=== PATIENT | female | born 1935 | race Caucasian/White ===

== ENCOUNTER 2017-07-16 01:53 | Emergency (ER) | payer OTHER ==
[2017-07-16 02:42] VITALS: TEMP 97.9; BMI 29.5
[2017-07-16] MEDS ORDERED: morphine CARPU-JECT 2 MG/1 ML DISP.SYRIN IVPUSH ONE (02:57)
--- NOTE | 2017-07-16 03:26 | PDOC ---
History of Present Illness - General History Source: Patient Exam Limitations: No Limitations - History of Present Illness Initial Comments: 07/16/17 04:33 Patient is an 82 year old female with a significant past medical history of who presents to the ED complaints of abdominal pain that began this morning at 12:30am. As per patient's daughter, patient called daughter at 1am stating that she had been experiencing left upper quadrant pain for 1 hour. She reports Left upper quadrant pain is sharp pain that is constant but waxes and wanes in intensity that is intensifies with deep breathes. Patient reports experiencing similar episode many years ago and was hospitalized for it but does not remember the diagnosis given. Denies nausea, vomiting. Pt denies any chest pain, sob, cough/hemoptysis. Denies fever, chills. Denies diarrhea, constipation, dysuria, hematuria. Denies contact with sick individuals, out of state travel. Denies trauma to affected area. Allergies: None Social history: No smoking. No alcohol. No illicit drugs. Surgical history: None PMD: Dr. Shayne Francis (not on staff) <Lit Mancera - Last Filed: 07/16/17 04:33> <Gama Sandy - Last Filed: 07/16/17 09:09> - General Chief Complaint: Pain, Acute Stated Complaint: LLQ PAIN Time Seen by Provider: 07/16/17 02:22 Past History <Lit Mancera - Last Filed: 07/16/17 04:33> - Suicide/Smoking/Psychosocial Hx Smoking History: Unknown if ever smoked Information on smoking cessation initiated: No Hx Alcohol Use: No Drug/Substance Use Hx: No <Gama Sandy - Last Filed: 07/16/17 09:09> - Past Medical History Allergies/Adverse Reactions: Allergies Allergy/AdvReac Type Severity Reaction Status Date / Time No Known Allergies Allergy Verified 07/16/17 03:03 Home Medications: Ambulatory Orders Docusate Sodium [Colace -] 100 mg PO TID #30 capsule 07/16/17 Psyllium [Metamucil (Sugar-Free) -] 5.85 gm PO BID #30 packet 07/16/17 Review of Systems - Review of Systems Able to Perform ROS?: Yes Comments:: 07/16/17 04:34 CONSTITUTIONAL: No reported: Fever, Chills, Diaphoresis, Generalized Weakness, Malaise, Loss of Appetite HEENT: No reported: Rhinorrhea, Nasal Congestion, Throat Pain, Throat Swelling, Difficulty Swallowing, Mouth Swelling, Ear Pain, Eye Pain, Visual Changes CARDIOVASCULAR: No reported: Chest Pain, Syncope, Palpitations, Irregular Heart Rate, Lightheadedness, Peripheral Edema RESPIRATORY: No reported: Cough, Shortness of Breath, SOB with Exertion, Orthopnea, Wheezing , Stridor, Hemoptysis GASTROINTESTINAL: No reported: Abdominal pain, Abdominal Distension, Nausea, Vomiting, Diarrhea, Constipation, Melena, Hematochezia GENITOURINARY: No reported: Dysuria, Frequency, Urgency, Hesitancy, Flank Pain, Genital Pain MUSCULOSKELETAL: +Left upper quadrant pain. No reported: Myalgia, Arthralgia, Joint Swelling, Back pain, Neck Pain SKIN: No reported: Rash, Itching, Pallor HEMATOLOGIC/IMMUNOLOGIC: No reported: Easy Bleeding, Easy Bruising, Lymphadenopathy, Frequent infections ENDOCRINE: No reported: Unexplained Weight Gain, Unexplained Weight Loss, Heat Intolerance , Cold Intolerance NEUROLOGIC: No reported: Headache, Focal Weakness, Paresthesias, Vertigo, Lightheadedness, Unsteady Gait, Seizure, Mental Status Changes, Incontinence PSYCHIATRIC: No reported: Anxiety, Depression All Other Systems: Reviewed and Negative <Lit Mancera - Last Filed: 07/16/17 04:33> *Physical Exam - Vital Signs Last Vital Signs Temp Pulse Resp BP Pulse Ox 97.9 F 73 18 166/64 97 07/16/17 02:38 07/16/17 03:47 07/16/17 03:47 07/16/17 03:50 07/16/17 03:47 - Physical Exam Comments: 07/16/17 04:34 GENERAL: The patient is awake, alert, and fully oriented, Nontoxic - in no acute distress. HEAD: Normocephalic, atraumatic. EYES: extraocular movements intact, sclera anicteric, conjunctiva clear. ENT: Normal voice, Moist mucous membranes. NECK: Normal range of motion, No JVD LUNGS: Breath sounds equal, clear to auscultation bilaterally. No wheezes, no rhonchi, no rales. HEART: Regular rate and rhythm, normal S1 and S2 without murmur, rub or gallop. ABDOMEN: +Mild left upper quadrant tenderness. Soft, normoactive bowel sounds. No guarding, no rebound. No masses. No CVA tenderness EXTREMITIES: +Trace edema. No homans sign. No calf tenderness. Normal range of motion, no edema. No clubbing or cyanosis. No cords, erythema, or tenderness. NEUROLOGICAL: No facial asymmetry, Normal speech, normal gait. PSYCH: Normal mood, normal affect. SKIN: Warm, Dry, normal turgor. <Lit Mancera - Last Filed: 07/16/17 04:33> - Vital Signs Last Vital Signs Temp Pulse Resp BP Pulse Ox 97.9 F 93 H 14 206/60 91 L 07/16/17 02:38 07/16/17 02:38 07/16/17 02:38 07/16/17 02:38 07/16/17 02:38 <Gama Sandy - Last Filed: 07/16/17 09:09> Heart Score/ECG Review - ECG Impressions Comment:: 07/16/17 03:31 Twelve-lead EKG was performed and reviewed by me. There is normal sinus rhythm with a normal rate. rate of 76 Left axis deviation There are no ST or T wave abnormalities suggestive of acute ischemia <Gama Sandy - Last Filed: 07/16/17 09:09> ED Treatment Course - LABORATORY CBC & Chemistry Diagram: 07/16/17 03:31 07/16/17 03:31 - ADDITIONAL ORDERS Additional order review: Laboratory Results 07/16/17 07/16/17 07/16/17 03:31 03:31 03:31 Sodium 141 Potassium 4.6 Chloride 108 H Carbon Dioxide 24 Anion Gap 9 BUN 48 H Creatinine 1.4 H Creat Clearance w eGFR 36.00 Random Glucose 174 H Calcium 9.0 Total Bilirubin 0.2 AST 28 ALT 30 Alkaline Phosphatase 76 Creatine Kinase 462 H Troponin I < 0.02 Total Protein 7.5 Albumin 3.5 Lipase 212 Urine Color Straw Urine Appearance Slcloudy Urine pH 5.0 Ur Specific [place] 1.015 Urine Protein 2+ H Urine Glucose (UA) 1+ H Urine Ketones Negative Urine Blood 1+ H Urine Nitrite Negative Urine Bilirubin Negative Urine Urobilinogen Negative Urine WBC (Auto) 1 Urine RBC (Auto) 1 Ur Epithelial Cells Rare 07/16/17 03:31 RBC 4.50 MCV 87.7 MCHC 33.0 RDW 13.3 MPV 9.7 Neutrophils % 58.3 Lymphocytes % 31.8 Monocytes % 7.8 Eosinophils % 1.4 Basophils % 0.7 <Lit Mancera - Last Filed: 07/16/17 04:33> - LABORATORY CBC & Chemistry Diagram: 07/16/17 03:31 07/16/17 03:31 - RADIOLOGY Radiology Studies Ordered: Category Date Time Status CHEST X-RAY PORTABLE* [RAD] Stat Radiology 07/16/17 02:55 Ordered <Gama Sandy - Last Filed: 07/16/17 09:09> Medical Decision Making - Medical Decision Making 07/16/17 03:22 82y F hx of hl, htn, presents with complaint of LLQ pain, sudden onset tonight approx 1am, w/o associated radiation, numbness/tingling/weakness, n/v, fever/ chills, diarrhea, melena, dysuria. On exam the pt apears to be in discomfort, her abdomen reveals minima LUE tenderness w/o rebound/guarding, no CVA tenderness. differential for the pts pain includes kidney stones, pancreatitis, gastritis, acs, diverticulitis will ck labs, ekg, ua will give morphine will reasssess A portion of this note was documented by scribe services under my direction. I have reviewed the details of the note, within reason, and agree with the documentation with the following case summary and management plan written by me 07/16/17 06:55 pts sat was originally noted a bit low, but suspect due to poor signal - repeat sat was normal on RA and pt has no respiratory complaintes/clear lungs pts labs reviewed noted for leukocytosis to 14 w/o left shift cmp noted for cr of 1.4, (cw prior ckd) pt feels improved CT shows large amount of stool in right colon suspect her pain may be due ileus/parastalysis and her leukocytosis may be a stress response to her discomfort. will give pt meds for her constipation pts daugther notes she has been constipated recently, last BM was 2 days ago was smal and hard will dc to fu with pmd strict return precutions were dsicussed for worsening pain or signs of infection or other cocnerns. I discussed the physical exam findings, ancillary test results and final diagnoses with the patient. I answered all of the patient's questions. The patient was satisfied with the care received and felt comfortable with the discharge plan and treatment plan. The patient will call their primary care physician within 24 hours to arrange follow-up and will return to the Emergency Department with any new, persistent or worsening symptoms. <Gama Sandy - Last Filed: 07/16/17 09:09> *DC/Admit/Observation/Transfer - Attestations Scribe Attestion: 07/16/17 04:35 Documentation prepared by Lit Mancera, acting as medical esthetician for Gama Sandy MD, /DO. <Lit Mancera - Last Filed: 07/16/17 04:33> - Discharge Dispostion Admit: No <Gama Sandy - Last Filed: 07/16/17 09:09> Diagnosis at time of Disposition: Constipation by delayed colonic transit Abdominal pain Qualifiers: Abdominal location: left upper quadrant Qualified Code(s): R10.12 - Left upper quadrant pain - Discharge Dispostion Disposition: HOME Condition at time of disposition: Improved - Prescriptions Prescriptions: Docusate Sodium [Colace -] 100 mg PO TID #30 capsule Psyllium [Metamucil (Sugar-Free) -] 5.85 gm PO BID #30 packet - Patient Instructions Printed Discharge Instructions: DI for Constipation Additional Instructions: Regrese al departamento de emergencias de inmediato con CUALQUIER sntoma nuevo , persistente o que empeore, eliseo empeoramiento del dolor abdominal, fiebre, escalofros, incapacidad para tolerar la ingesta oral o cualquier otra inquietud. Por favor aumente phillip consumo de agua, aumente la actividad fsica y aumente phillip consumo de fibra DEBE llamar y hacer un seguimiento con phillip mdico en dos santacruz para stanley mayor evaluacin de pato sntomas. Phillip visita al departamento de emergencia no est completa sin un seguimiento con phillip mdico para la reevaluacin. Los resultados fueron discutidos con usted. Asegrese de que phillip mdico revise los resultados de phillip evaluacin de emergencia. ======== Return to the emergency department immediately with ANY new, persistent or worsening symptoms including worsening abdominal pain, fevers, chills, inability to tolerate oral intake or any other concerns. Please increase your water intake, increasing physical activity and increase her fiber intake You MUST call and follow up with your doctor in 2 days for further evaluation of your symptoms. Your emergency department visit is not complete without a followup with your doctor for reevaluation. Results were discussed with you. Please make sure your doctor reviews the results of your emergency evaluation. Print Language: FRISIAN
[2017-07-16] MEDS ORDERED: morphine SULFATE 4 MG/ML VIAL ONE (03:43)
[2017-07-16 03:44] LABS: BASOPHIL 0.7 % (0-2.0); EOSINOPHIL 1.4 % (0-4.5); MCH 28.9 pg (25.7-33.7); MEAN CELL VOLUME 87.7 fl (80-96); MEAN PLT VOLUME 9.7 fl (7.5-11.1); NEUTROPHILS 58.3 % (42.8-82.8); PLATELET COUNT 244 K/MM3 (134-434); RDW 13.3 % (11.6-15.6); WHITE BLOOD COUNT 14.9 K/mm3 (4.0-10.0)
[2017-07-16 03:45] LABS: URINE APPEARANCE SLCLOUDY; URINE BILIRUBIN NEGATIVE (NEGATIVE); URINE BLOOD 1+ (NEGATIVE); URINE COLOR STRAW; URINE GLUCOSE (UA) 1+ (NEGATIVE); URINE KETONE NEGATIVE (NEGATIVE); URINE NITRITE NEGATIVE (NEGATIVE); URINE UROBILINOGEN NEGATIVE mg/dL (0.2-1.0)
[2017-07-16 03:48] VITALS: PULSE 73
[2017-07-16 03:48] LABS: URINE PROTEIN 2+ (NEGATIVE)
[2017-07-16 03:49] LABS: URINE RBC 1; URINE WBC 1
[2017-07-16 03:51] VITALS: BP 166/64
[2017-07-16 04:21] LABS: ALBUMIN 3.5 g/dl (3.4-5.0); ANION GAP 9 (8-16); BILIRUBIN,TOTAL 0.2 mg/dL (0.2-1.0); CO2 24 mmol/L (21-32); CREATININE 1.4 mg/dL (0.55-1.02); GLUCOSE,RANDOM 174 mg/dL (74-106); SGPT/ALT 30 U/L (12-78); TOT PROT 7.5 g/dl (6.4-8.2)
[2017-07-16 04:24] LABS: ALK PHOS 76 U/L (45-117); CPK 462 IU/L (26-192); TROPONIN I < 0.02 ng/ml (0.00-0.05)
[2017-07-16 04:25] LABS: SGOT/AST 28 U/L (15-37)
[2017-07-16] MEDS ORDERED: SODIUM CHLORIDE 500 ML IV STA (04:54)
[2017-07-16 11:34] LABS: URINE LEUK ESTERASE Negative (NEGATIVE)
--- NOTE | 2017-07-16 12:35 | EKG ---
Test Reason : Blood Pressure : / mmHG Vent. Rate : 076 BPM Atrial Rate : 076 BPM P-R Int : 152 ms QRS Dur : 080 ms QT Int : 418 ms P-R-T Axes : 027 -33 049 degrees QTc Int : 470 ms POOR DATA QUALITY, INTERPRETATION MAY BE ADVERSELY AFFECTED NORMAL SINUS RHYTHM LEFT AXIS DEVIATION LEFT ANTERIOR FASCICULAR BLOCK EARLY TRANSITION IN V2 MINIMAL VOLTAGE CRITERIA FOR LVH, MAY BE NORMAL VARIANT ABNORMAL ECG NO PREVIOUS ECGS AVAILABLE REPEAT EKG IF CLINICALLY INDICATED Confirmed by JEROME HIGGINS MD ([id number]) on 07/16/2017 12:35:32 PM Referred By: Confirmed By:JEROME HIGGINS MD
== END 2017-07-16 07:16 | disposition home or self-care (01) ==
LOC: JER 01:53
PROC: 3E0337Z Introduction of Electrolytic and Water Balance Substance into Peripheral Vein, Percutaneous Approach (ICD-10-PCS; principal; 2017-07-16)
PROC: 3E033NZ Introduction of Analgesics, Hypnotics, Sedatives into Peripheral Vein, Percutaneous Approach (ICD-10-PCS; 2017-07-16)
DX: K59.01 Slow transit constipation (principal); I10 Essential (primary) hypertension; E78.00 Pure hypercholesterolemia, unspecified
CPT/HCPCS: 36415; 71010-TC; 74176-TC; 80053; 81003; 81015; 82550; 82553; 83690; 84484; 85025; 93005; 93010; 96361; 96374; 99282-25

== ENCOUNTER 2018-11-18 10:16 | Emergency (ER) | payer OTHER ==
[2018-11-18 10:35] VITALS: BMI 29.8
[2018-11-18] MEDS ORDERED: ACETAMINOPHEN 1000 MG/100 ML VIAL (NON FORMULARY) IVPB ONE (11:48)
[2018-11-18] MEDS ORDERED: ACETAMINOPHEN INJECTION 100 ML IVPB ONE (12:39)
[2018-11-18 13:02] LABS: BASO % 0.4 % (0-2.0); EOS % 1.6 % (0-4.5); HEMATOCRIT 37.2 % (32.4-45.2); HEMOGLOBIN 12.8 GM/dL (10.7-15.3); LYMPH % 42.2 % (8-40); MCHC 34.3 g/dl (32.0-36.0); MEAN CELL VOLUME 87.2 fl (80-96); MEAN PLT VOLUME 9.8 fl (7.5-11.1); NEUT % 49.8 % (42.8-82.8); PLATELET COUNT 246 K/MM3 (134-434); RBC 4.26 M/mm3 (3.60-5.2); WHITE BLOOD COUNT 10.1 K/mm3 (4.0-10.0)
[2018-11-18 13:04] LABS: URINE APPEARANCE CLEAR; URINE BILIRUBIN NEGATIVE (<2.0 mg/dL); URINE COLOR STRAW; URINE GLUCOSE (UA) NEGATIVE (NEGATIVE); URINE KETONE NEGATIVE (NEGATIVE); URINE LEUK ESTERASE TRACE (NEGATIVE); URINE NITRITE POSITIVE (NEGATIVE); URINE PROTEIN 2+ (NEGATIVE); URINE UROBILINOGEN NEGATIVE mg/dL (0.2-1.0)
[2018-11-18 13:17] LABS: EPI CELLS RARE /HPF (FEW); URINE BACTERIA MODERATE /hpf (NONE SEEN)
--- NOTE | 2018-11-18 13:25 | PDOC ---
History of Present Illness - General Chief Complaint: Pain, Acute Stated Complaint: LT ABD PAIN Time Seen by Provider: 11/18/18 11:16 - History of Present Illness Initial Comments: 11/18/18 13:25 The patient is a 83 year old female, with a significant past medical history of HTN, diverticulosis, CKD, overactive bladder, Type 2 diabetes, who presents to the emergency department with left abdominal pain for 4 days. She reports gradual onset of pain and states the pain has been constant since. She reports the pain is 8/10, dull and achy, and exacerbated with movement. She states she has had normal BMs. She reports use of Tylenol which alleviates her pain temporarily. The patient denies chest pain, shortness of breath, headache and dizziness. The patient denies fever, chills, nausea, vomit, diarrhea and constipation. The patient denies dysuria and hematuria. Allergies: None Social history: No smoking. No alcohol. No illicit drugs. Surgical history: bladder surgery, C Section x4, cholecystectomy, colonoscopies PMD: Dr. April Peck Past History - Past Medical History Allergies/Adverse Reactions: Allergies Allergy/AdvReac Type Severity Reaction Status Date / Time No Known Allergies Allergy Verified 11/18/18 10:31 Home Medications: Ambulatory Orders Amlodipine Besylate [Norvasc -] 5 mg PO DAILY 11/18/18 Insulin Glargine,Hum.rec.anlog [Lantus Solostar] 33 unit SQ ASDIR 11/18/18 Losartan Potassium [Cozaar] 100 mg PO DAILY 11/18/18 Mirabegron [Myrbetriq] 25 mg PO DAILY 11/18/18 Rosuvastatin [Crestor -] 20 mg PO HS 11/18/18 Sitagliptin Phosphate [Januvia -] 100 mg PO DAILY@0700 11/18/18 Sulfamethoxazole/Trimethoprim [Bactrim Ds -] 1 tab PO BID #14 tablet 11/18/18 COPD: No Diabetes: Yes (on lantus) Disorders: Yes (incontinence) HTN: Yes Hypercholesterolemia: Yes - Suicide/Smoking/Psychosocial Hx Smoking History: Never smoked Hx Alcohol Use: No Drug/Substance Use Hx: No Review of Systems - Review of Systems Comments:: 11/18/18 13:37 GENERAL/CONSTITUTIONAL: No fever or chills. No weakness. HEAD, EYES, EARS, NOSE AND THROAT: No change in vision. No ear pain or discharge. No sore throat. CARDIOVASCULAR: No chest pain, no shortness of breath, no loss of consciousness RESPIRATORY: No cough, wheezing, or hemoptysis. GASTROINTESTINAL: (+) left abdominal pain. No nausea, vomiting, diarrhea or constipation. GENITOURINARY: No dysuria, frequency, or change in urination. MUSCULOSKELETAL: No joint or muscle swelling or pain. No neck or back pain. SKIN: No rash NEUROLOGIC: No vertigo, no change in strength/sensation. ENDOCRINE: No increased thirst. No abnormal weight change. HEMATOLOGIC/LYMPHATIC: No anemia, easy bleeding, or history of blood clots. ALLERGIC/IMMUNOLOGIC: No hives or skin allergy. *Physical Exam - Vital Signs Last Vital Signs Temp Pulse Resp BP Pulse Ox 98.3 F 74 18 178/60 H 99 11/18/18 10:34 11/18/18 10:34 11/18/18 10:34 11/18/18 10:34 11/18/18 12:33 - Physical Exam Comments: 11/18/18 13:37 GENERAL: Awake, alert, and fully oriented, in no acute distress. HEAD: No signs of trauma EYES: PERRLA, EOMI, sclera anicteric, conjunctiva clear ENT: Auricles normal inspection, hearing grossly normal, nares patent, oropharynx clear without exudates. Moist mucosa NECK: Nontender, no stepoffs, Normal ROM, supple, no lymphadenopathy, JVD, or masses LUNGS: Breath sounds equal, clear to auscultation bilaterally. No wheezes, and no crackles HEART: Regular rate and rhythm, normal S1 and S2, no murmurs, rubs or gallops ABDOMEN: + mild LLQ TTP, normoactive bowel sounds. No guarding, no rebound. No masses EXTREMITIES: Normal range of motion, no edema. No clubbing or cyanosis. No cords, erythema, or tenderness NEUROLOGICAL: Cranial nerves II through XII intact. 5/5 strength and sensation in all extremities, Normal speech, normal gait, normal cerebellar function SKIN: Warm, Dry, normal turgor, no rashes or lesions noted. Moderate Sedation - Procedure Monitoring Vital Signs: Procedure Monitoring Vital Signs Temperature 98.3 F 11/18/18 10:34 Pulse Rate 74 11/18/18 10:34 Respiratory Rate 18 11/18/18 10:34 Blood Pressure 178/60 H 11/18/18 10:34 O2 Sat by Pulse Oximetry (%) 99 11/18/18 12:33 ED Treatment Course - LABORATORY CBC & Chemistry Diagram: 11/18/18 12:20 11/18/18 12:20 - ADDITIONAL ORDERS Additional order review: 11/18/18 12:20 RBC 4.26 MCV 87.2 MCHC 34.3 RDW 14.0 MPV 9.8 Neutrophils % 49.8 Lymphocytes % 42.2 H D Monocytes % 6.0 Eosinophils % 1.6 Basophils % 0.4 - RADIOLOGY Radiology Studies Ordered: Category Date Time Status ABDOMEN & PELVIS CT WITH CONTR [CT] Stat CT Scan 11/18/18 11:45 Ordered Medical Decision Making - Medical Decision Making 11/18/18 13:38 83 F with L sided abdominal pain x 4 days. Will evaluate for diverticulitis/ colitis. Pain may be msk as it is exacerbated by movement, and pt's exam with very minimal tenderness. Also consider mesenteric ischemia given pt's age. - Labs, lactate - CTAP - Tylenol 11/18/18 16:41 Labs wnl, pending CT Pt signed out to oncoming attending, pending CT and re-evaluation *DC/Admit/Observation/Transfer Diagnosis at time of Disposition: UTI (urinary tract infection) Qualifiers: Urinary tract infection type: site unspecified Hematuria presence: without hematuria Qualified Code(s): N39.0 - Urinary tract infection, site not specified - Discharge Dispostion Disposition: HOME Condition at time of disposition: Stable - Prescriptions Prescriptions: Sulfamethoxazole/Trimethoprim [Bactrim Ds -] 1 tab PO BID #14 tablet - Referrals Referrals: April Peck MD [Primary Care Provider] - - Patient Instructions Printed Discharge Instructions: DI for Urinary Tract Infection (UTI) Additional Instructions: 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 Jesus Berger MD, attest that this document has been prepared under my direction and personally reviewed by me in its entirety. I further attest, that it accurately reflects all work, treatment, procedures and medical decision -making performed by me.
[2018-11-18 13:33] LABS: ALBUMIN 3.3 g/dl (3.4-5.0); ALK PHOS 118 U/L (45-117); ANION GAP 4 MMOL/L (8-16); BILIRUBIN,TOTAL 0.4 mg/dL (0.2-1); BLOOD UREA NITROGEN 37 mg/dL (7-18); CALCIUM 9.4 mg/dL (8.5-10.1); CHLORIDE 108 mmol/L (98-107); CO2 28 mmol/L (21-32); CREATININE 1.6 mg/dL (0.55-1.3); GLUCOSE,RANDOM 148 mg/dL (74-106); LIPASE 182 U/L (73-393); POTASSIUM 4.9 mmol/L (3.5-5.1); SGOT/AST 20 U/L (15-37); SGPT/ALT 26 U/L (13-61); SODIUM 140 mmol/L (136-145); TOT PROT 7.5 g/dl (6.4-8.2)
[2018-11-18] MEDS ORDERED: SODIUM CHLORIDE 500 ML IV STA (14:30)
[2018-11-18 17:01] VITALS: BP 128/79; PULSE 79; TEMP 98.7
[2018-11-18] MEDS ORDERED: CEFTRIAXONE 1,000 MG in DEXTROSE 5%-WATER - 50 ML IVPB STA (19:28)
[2018-11-18] MEDS ORDERED: CEFTRIAXONE 1 GM/50 ML BAG ONE (19:53)
--- NOTE | 2018-11-18 20:08 | PDOC ---
*Physical Exam - Vital Signs Last Vital Signs Temp Pulse Resp BP Pulse Ox 98.7 F 79 16 128/79 99 11/18/18 17:00 11/18/18 17:00 11/18/18 17:00 11/18/18 17:00 11/18/18 17:00 ED Treatment Course - LABORATORY CBC & Chemistry Diagram: 11/18/18 12:20 11/18/18 12:20 - ADDITIONAL ORDERS Additional order review: Laboratory Results 11/18/18 11/18/18 11/18/18 12:20 12:20 12:20 Sodium 140 Potassium 4.9 Chloride 108 H Carbon Dioxide 28 Anion Gap 4 L BUN 37 H Creatinine 1.6 H Creat Clearance w eGFR 30.78 Random Glucose 148 H Lactic Acid 1.6 Calcium 9.4 Total Bilirubin 0.4 AST 20 ALT 26 Alkaline Phosphatase 118 H Creatine Kinase 330 H Creatine Kinase Index 0.6 CK-MB (CK-2) 2.3 Troponin I < 0.02 Total Protein 7.5 Albumin 3.3 L Lipase 182 Urine Color Straw Urine Appearance Clear Urine pH 7.0 D Ur Specific [place] 1.009 L Urine Protein 2+ H Urine Glucose (UA) Negative Urine Ketones Negative Urine Blood Negative Urine Nitrite Positive Urine Bilirubin Negative Urine Urobilinogen Negative Ur Leukocyte Esterase Trace Urine WBC (Auto) 9 Urine RBC (Auto) 1 Ur Epithelial Cells Rare Urine Bacteria Moderate 11/18/18 12:20 RBC 4.26 MCV 87.2 MCHC 34.3 RDW 14.0 MPV 9.8 Neutrophils % 49.8 Lymphocytes % 42.2 H D Monocytes % 6.0 Eosinophils % 1.6 Basophils % 0.4 - Medications Given in the ED: ED Medications Discontinued Medications Generic Name Dose Route Start Last Admin Trade Name Freq PRN Reason Stop Dose Admin Acetaminophen 1,000 mg 11/18/18 11:48 11/18/18 13:09 Ofirmev Injection - IVPB 11/18/18 11:49 1,000 mg ONCE ONE Administration Sodium Chloride 500 mls @ 1,000 mls/hr 11/18/18 14:30 11/18/18 14:46 Normal Saline - IV 11/18/18 14:59 1,000 mls/hr ASDIR STA Administration Medical Decision Making - Medical Decision Making 11/18/18 20:07 ct scan abd/pel: no colitis,no diverticulitis pt ges have UTI ( nitrite postive, 9 wbcs)and was started on antibiotics and then she will go home RX bactrim ds plan she already has an appt with her PCP this Saturday11/18/18 20:12 *DC/Admit/Observation/Transfer Diagnosis at time of Disposition: UTI (urinary tract infection) Qualifiers: Urinary tract infection type: site unspecified Hematuria presence: without hematuria Qualified Code(s): N39.0 - Urinary tract infection, site not specified - Discharge Dispostion Disposition: HOME Condition at time of disposition: Stable - Prescriptions Prescriptions: Sulfamethoxazole/Trimethoprim [Bactrim Ds -] 1 tab PO BID #14 tablet - Referrals Referrals: April Peck MD [Primary Care Provider] - - Patient Instructions Printed Discharge Instructions: DI for Urinary Tract Infection (UTI) Additional Instructions: 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
== END 2018-11-18 21:01 | disposition home or self-care (01) ==
LOC: JER 10:16
PROC: 3E03329 Introduction of Other Anti-infective into Peripheral Vein, Percutaneous Approach (ICD-10-PCS; principal; 2018-11-18)
PROC: 3E033NZ Introduction of Analgesics, Hypnotics, Sedatives into Peripheral Vein, Percutaneous Approach (ICD-10-PCS; 2018-11-18)
DX: N39.0 Urinary tract infection, site not specified (principal); I12.9 Hypertensive chronic kidney disease with stage 1 through stage 4 chronic kidney disease, or unspecified chronic kidney disease; E11.22 Type 2 diabetes mellitus with diabetic chronic kidney disease; N18.9 Chronic kidney disease, unspecified; Z79.4 Long term (current) use of insulin; N32.81 Overactive bladder; Z87.19 Personal history of other diseases of the digestive system
CPT/HCPCS: 36415; 74176-TC; 80053; 81003; 81015; 82550; 82553; 83605; 83690; 84484; 85025; 87086; 87186; 96365; 96375; 99282-25; J0131; J7030

== ENCOUNTER 2019-04-13 06:26 | Day surgery (SDC) | payer OTHER ==
[2019-04-10 20:06] VITALS: BMI 29.6
[2019-04-13] MEDS ORDERED: PROPOFOL 20 ML ONE (08:14)
[2019-04-13] MEDS ORDERED: SUCCINYLCHOLINE CHLORIDE 200 MG/10 ML SYRINGE ONE (08:14)
[2019-04-13] MEDS ORDERED: IOHEXOL 300 MG/ML INFUS..BTL IJ ONE (09:00)
[2019-04-13] MEDS ORDERED: ePHEDrine SULFATE 50 MG/1 ML AMPULE ONE (09:04)
[2019-04-13] MEDS ORDERED: DEXAMETHASONE SOD PHOSPHATE 4 MG/1 ML VIAL ONE (09:09)
[2019-04-13] MEDS ORDERED: ACETAMINOPHEN INJECTION 100 ML IVPB ONE (09:56)
[2019-04-13] MEDS ORDERED: ACETAMINOPHEN 1000 MG/100 ML VIAL (NON FORMULARY) IVPB ONE (10:15)
--- NOTE | 2019-04-13 10:52 | OP ---
Operative Note - Note: Operative Date: 04/13/19 Pre-Operative Diagnosis: right hydronephrosis with renal colic Operation: cystoscopy/right retrograde pyelogram/right ureteroscopy Findings: mild right hydronephrosis with distal hydroureter. Kidney on right drains well Post-Operative Diagnosis: Same as Pre-op Surgeon: Michael Castle Anesthesia: General
[2019-04-13 11:49] VITALS: BP 144/60; PULSE 60; TEMP 98.6
[2019-04-13] MEDS ORDERED: ONDANSETRON 4 MG/2 ML VIAL IVPUSH PRN (13:08)
--- NOTE | 2019-04-13 20:28 | OP ---
DATE OF OPERATION: 04/13/2019 PREOPERATIVE DIAGNOSIS: Right hydronephrosis with renal colic. POSTOPERATIVE DIAGNOSIS: Right hydronephrosis with renal colic. PROCEDURE: Cystoscopy, right retrograde pyelogram, right ureteroscopy. ATTENDING: Karo Carreon MD ANESTHESIA: General. OPERATION: The patient was brought in the operating room, placed in supine position on the operating room table. She was given general anesthesia, preoperative antibiotics, and placed in the dorsal lithotomy position and prepped and draped in the usual sterile manner. The patient is 83 years of age and her legs could not be adequately for cystoscopy in the conventional way. There were limitations in her legs, therefore limiting the ability of the surgeon to perform a retrograde pyelogram. Cystoscopy was performed and a significant grade 2 cystocele was noted. Due to the position of the bladder, and the inability to separate the legs, there was difficulty encountered in cannulating the right ureteral orifice. At this point, it was decided to utilize the ureteroscope in order to pass a wire into the right ureteral orifice. A ureteroscope was utilized and the right ureteral orifice was intubated and a wire passed proximally. There was no evidence of neoplasm in the distal 2 cm of the ureter. A retrograde pyelogram was performed, which showed a mild hydronephrosis with a distal right hydroureter. There was adequate drainage on followup fluoroscopy. The patient tolerated the procedure very well. There was no indication for a stent to be placed. The disposition of the patient was to recovery room. KARO CARREON M.D. [id number]
== END 2019-04-13 11:50 | disposition home or self-care (01) ==
LOC: JASU-SURG 06:26
PROVIDERS: ATTEND Urology
PROC: BT1DZZZ Fluoroscopy of Right Kidney, Ureter and Bladder (ICD-10-PCS; principal; 2019-04-13 08:00)
DX: N13.30 Unspecified hydronephrosis (principal); N23 Unspecified renal colic
CPT/HCPCS: 76000-TC-FY; 82962; 94760; J0131